=== PATIENT | female | born 1955 | race Caucasian/White ===

== ENCOUNTER 2019-09-16 10:36 | Outpatient (CLI) | payer MEDICARE, SELFPAY ==
--- NOTE | ~2019-09-16 | XR_ITS ---
EXAMINATION: XR thoracic spine 3V DATE: 09/16/2019 11:20 INDICATION: Thoracic back pain. TECHNIQUE: 3 views of thoracic spine were obtained. COMPARISON: Chest 2 views 02/18/2018 FINDINGS: There is 9 degrees levocurvature of thoracic spine. Vertebral body heights are normal. Ther e is mild to moderately decreased disc height at multiple levels in mid thoracic spine. There are end plate osteophytes at most levels. IMPRESSION: 1. Moderate thoracic spondylosis. Reviewed, dictated and finalized at location A.
--- NOTE | ~2019-09-16 | XR_ITS ---
XR shoulder LT min 2V DATE: 09/16/2019 11:21 INDICATION: Left shoulder pain after fall 2 days ago TECHNIQUE: AP and Neer views COMPARISON: None FINDINGS: No fracture or dislocation, periosteal reaction or bone destruction. No abnormal soft tiss ue calcification. IMPRESSION: No significant abnormality Reviewed, dictated and finalized at location B. IMPRESSION: No significant abnormality
== END 2019-09-16 10:37 | disposition home or self-care (01) ==
PROVIDERS: PCP Physician Assistant; Visit Provider Physician Assistant
DX: M54.6 Pain in thoracic spine (principal); M25.512 Pain in left shoulder
CPT/HCPCS: 72072; 73030